=== PATIENT | male | born 1960 | race Caucasian/White ===

== ENCOUNTER 2019-12-13 16:04 | Emergency (ER) | payer BC ==
--- NOTE | 2019-12-13 16:33 | EDM.PDOC ---
Scribed by Antoinette Nelson 12/13/19 2183 for Cristian Stone MD ED HPI GENERAL MEDICAL PROBLEM - General Chief Complaint: Upper Extremity Injury/Pain Stated Complaint: BROKE UP IN THE SHOULDER & SWELLED IN LOWER ARM Time Seen by Provider: 12/13/19 16:10 Source of Information: Reports: Patient, RN, RN Notes Reviewed History Limitations: Reports: No Limitations - History of Present Illness INITIAL COMMENTS - FREE TEXT/NARRATIVE: Patient presents to ER by POV with complaint that he had a broken shoulder on Tuesday and was transferred to [place]. He has swelling in the right forearm and hand. He denies any pain, numbness in the tingling in the forearm or hand. He is just worried about the swelling. Onset: Today Duration: Constant Location: Reports: Upper Extremity, Right Quality: Reports: Ache Severity: Mild Improves with: Reports: None Worsens with: Reports: None Associated Symptoms: Reports: No Other Symptoms Right Upper Arm Pain Score (Numeric/FACES): 1 - Related Data Allergies Allergy/AdvReac Type Severity Reaction Status Date / Time No Known Allergies Allergy Verified 12/13/19 16:11 Home Meds: Home Meds . [No Known Home Meds] 12/13/19 [History] Past Medical History Musculoskeletal History: Reports: Fracture Social & Family History - Family History Family Medical History: Noncontributory Review of Systems - Review of Systems Review Of Systems: Comprehensive ROS is negative, except as noted in HPI. ED EXAM, GENERAL - Physical Exam Exam: See Below Exam Limited By: No Limitations General Appearance: Alert, WD/WN, No Apparent Distress Neck: Normal Inspection Respiratory/Chest: No Respiratory Distress Cardiovascular: Normal Peripheral Pulses Peripheral Pulses: 3+: Radial (L), Radial (R) Extremities: Normal Capillary Refill, Other (Bruising and swelling to Rt upper arm with dependent edema of Rt lower arm but soft and nontender, no concern for compartment syndrome based on this exam.) Neurological: Alert, Oriented Psychiatric: Normal Mood Skin Exam: Warm, Dry, Intact Course - Vital Signs Last Recorded V/S: Last Vital Signs Temp 98.2 F 12/13/19 16:12 Pulse 85 12/13/19 16:12 Resp 16 12/13/19 16:12 BP 179/74 H 12/13/19 16:12 Pulse Ox 98 12/13/19 16:12 Departure - Departure Time of Disposition: 16:29 Disposition: Home, Self-Care 01 Condition: Good Clinical Impression: Swelling of right upper extremity Traumatic hematoma of right upper arm Qualifiers: Encounter type: initial encounter Qualified Code(s): S40.021A - Contusion of right upper arm, initial encounter - Discharge Information *PRESCRIPTION DRUG MONITORING PROGRAM REVIEWED*: Not Applicable *COPY OF PRESCRIPTION DRUG MONITORING REPORT IN PATIENT KERRI: Not Applicable Instructions: How to Use Cold Therapy, [id number] Forms: ED Department Discharge Additional Instructions: Ice pack right arm. Notify the orthopedic clinic of the swelling tomorrow if it worsens at all. Return to ER if the arm becomes tight and painful. Sepsis Event Note (ED) - Focused Exam Vital Signs: Vital Signs Temp Pulse Resp BP Pulse Ox 12/13/19 16:12 98.2 F 85 16 179/74 H 98 I have read and agree with the documentation that has been completed regarding this visit. By signing this record, I attest that the documentation was completed in my physical presence and is an accurate record of the encounter.
== END 2019-12-13 16:40 | disposition home or self-care (01) ==
LOC: DL.ED 16:04
DX: S40.021A Contusion of right upper arm, initial encounter (principal); X58.XXXA Exposure to other specified factors, initial encounter
CPT/HCPCS: 99282; 99283